=== PATIENT | female | born 1950 | race Caucasian/White ===

== ENCOUNTER 2019-05-29 12:49 | Emergency (ER) | payer MEDICARE ==
[~2019-05-29] VITALS: Ht 162.6 cm; Wt 57.2 kg
--- NOTE | 2019-05-29 12:53 | NUR ---
ED Nurse Note: Pt brought in by ambulance c/o dizziness and vomiting x 3 hours. Pt became so dizzy that she sat herself on the floor. Pt denies fall/loss of consciousness/head injury. A+Ox4, speaking in full sentences. Respirations even and unlabored on room air. Pt is not actively vomiting at this time. Pt placed on monitor. Left FA 20 g inserted by paramedics flushed and patent.
[2019-05-29] MEDS ORDERED: Meclizine 25mg tab ORAL ONE (13:00)
--- NOTE | 2019-05-29 13:01 | Emergency Room Report ---
History of Present Illness General Chief Complaint: Dizziness Source: Patient (Christopher Bonilla MD) Present Illness HPI She is a 68-year-old female brought in by EMS after increased dizziness. Patient a prior history of high cholesterol as well as vertigo episodes in the past. She reports of increased ringing to ears. had acute onset of vertigo sensation. Reports having recent episode which worse with head movement. Denies any weakness to her extremities. Had recently traveled from [facility] but denies any diarrhea or vomit or vomiting since then and had previously been well. (Christopher Bonilla MD) Allergies: Coded Allergies: CODEINE (Verified Allergy, Intermediate, 05/29/19) Review of Systems All Other Systems: negative except mentioned in HPI (Christopher Bonilla MD) Physical Exam Vital Signs Date Time Temp Pulse Resp B/P (MAP) Pulse Ox O2 Delivery O2 Flow Rate FiO2 05/29/19 12:47 98.1 58 16 147/73 (97) 97 Sp02 EP Interpretation: reviewed, normal General Appearance: normal inspection, well appearing, no apparent distress, alert, GCS 15 Head: atraumatic ENT: normal ENT inspection, hearing grossly normal, normal voice Neck: normal inspection, full range of motion, supple, no bony tend Respiratory: normal inspection, lungs clear, normal breath sounds, no respiratory distress, no retraction, no wheezing Cardiovascular #1: regular rate, rhythm, no edema Gastrointestinal: normal inspection, normal bowel sounds, non tender, soft, no guarding, no hernia Genitourinary: no CVA tenderness Musculoskeletal: normal inspection, back normal, normal range of motion Neurologic: alert, oriented x3, responsive, speech normal, normal inspection, other - Nystagmus with leftward gaze. Psychiatric: normal inspection, judgement/insight normal, mood/affect normal (Christopher Bonilla MD) Medical Decision Making Diagnostic Impression: Primary Impression: Dizziness Additional Impression: Possible TIA ER Course Patient presented for increased dizziness and weakness. Differential diagnosis include was not limited to transient ischemic attack, peripheral vertigo, vertebrobasilar insufficiency, labyrinthitis, among others. Because of complexity of patient's case laboratory tests and imaging studies were ordered. Patient's laboratory testing was unremarkable. No hyponatremia or anemia. CT imaging read by radiology showed no evidence of acute intracranial hemorrhage or CVA. Patient was endorsed to Dr. Hale pending further imaging studies. Labs Test 05/29/19 13:20 White Blood Count 7.1 K/UL (4.8-10.8) Red Blood Count 3.91 M/UL (4.20-5.40) Hemoglobin 12.2 G/DL (12.0-16.0) Hematocrit 35.2 % (37.0-47.0) Mean Corpuscular Volume 90 FL (80-99) Mean Corpuscular Hemoglobin 31.2 PG (27.0-31.0) Mean Corpuscular Hemoglobin Concent 34.7 G/DL (32.0-36.0) Red Cell Distribution Width 11.4 % (11.6-14.8) Platelet Count 222 K/UL (150-450) Mean Platelet Volume 5.4 FL (6.5-10.1) Neutrophils (%) (Auto) 45.9 % (45.0-75.0) Lymphocytes (%) (Auto) 41.3 % (20.0-45.0) Monocytes (%) (Auto) 6.2 % (1.0-10.0) Eosinophils (%) (Auto) 5.8 % (0.0-3.0) Basophils (%) (Auto) 0.9 % (0.0-2.0) Sodium Level 140 MMOL/L (136-145) Potassium Level 4.3 MMOL/L (3.5-5.1) Chloride Level 103 MMOL/L (98-107) Carbon Dioxide Level 26 MMOL/L (21-32) Anion Gap 11 mmol/L (5-15) Blood Urea Nitrogen 11 mg/dL (7-18) Creatinine 0.9 MG/DL (0.55-1.30) Estimat Glomerular Filtration Rate > 60 mL/min (>60) Glucose Level 139 MG/DL (74-106) Calcium Level 8.3 MG/DL (8.5-10.1) Total Bilirubin 0.3 MG/DL (0.2-1.0) Aspartate Amino Transf (AST/SGOT) 22 U/L (15-37) Alanine Aminotransferase (ALT/SGPT) 24 U/L (12-78) Alkaline Phosphatase 73 U/L (46-116) Total Protein 7.0 G/DL (6.4-8.2) Albumin 3.5 G/DL (3.4-5.0) Globulin 3.5 g/dL Albumin/Globulin Ratio 1.0 (1.0-2.7) (Christopher Bonilla MD) ER Course This patient was turned over to me by Dr. Bonilla. He felt this patient had a TIA and should be admitted for further evaluation and treatment. I was able to obtain an MRI brain and this was negative. However, the patient declined admission and left AGAINST MEDICAL ADVICE. I did educate the patient that a TIA can be a warning of an unstable plaque and could be a prodrome to a CVA. The patient indicated understanding. She declined admission and left AGAINST MEDICAL ADVICE. Laboratory Tests Test 05/29/19 13:20 White Blood Count 7.1 K/UL (4.8-10.8) Red Blood Count 3.91 M/UL (4.20-5.40) L Hemoglobin 12.2 G/DL (12.0-16.0) Hematocrit 35.2 % (37.0-47.0) L Mean Corpuscular Volume 90 FL (80-99) Mean Corpuscular Hemoglobin 31.2 PG (27.0-31.0) H Mean Corpuscular Hemoglobin Concent 34.7 G/DL (32.0-36.0) Red Cell Distribution Width 11.4 % (11.6-14.8) L Platelet Count 222 K/UL (150-450) Mean Platelet Volume 5.4 FL (6.5-10.1) L Neutrophils (%) (Auto) 45.9 % (45.0-75.0) Lymphocytes (%) (Auto) 41.3 % (20.0-45.0) Monocytes (%) (Auto) 6.2 % (1.0-10.0) Eosinophils (%) (Auto) 5.8 % (0.0-3.0) H Basophils (%) (Auto) 0.9 % (0.0-2.0) Sodium Level 140 MMOL/L (136-145) Potassium Level 4.3 MMOL/L (3.5-5.1) Chloride Level 103 MMOL/L (98-107) Carbon Dioxide Level 26 MMOL/L (21-32) Anion Gap 11 mmol/L (5-15) Blood Urea Nitrogen 11 mg/dL (7-18) Creatinine 0.9 MG/DL (0.55-1.30) Estimate Glomerular Filtration Rate > 60 mL/min (>60) Glucose Level 139 MG/DL (74-106) H Calcium Level 8.3 MG/DL (8.5-10.1) L Total Bilirubin 0.3 MG/DL (0.2-1.0) Aspartate Amino Transferase (AST) 22 U/L (15-37) Alanine Aminotransferase (ALT) 24 U/L (12-78) Alkaline Phosphatase 73 U/L (46-116) Total Protein 7.0 G/DL (6.4-8.2) Albumin 3.5 G/DL (3.4-5.0) Globulin 3.5 g/dL Albumin/Globulin Ratio 1.0 (1.0-2.7) ([facility]) EKG Diagnostic Results Rate: normal Rhythm: NSR ST Segments: no acute changes (Christopher Bonilla MD) CT/MRI/US Diagnostic Results CT/MRI/US Diagnostic Results : Imaging Test Ordered: MRI Brain Impression No acute findings. See official report in the electronic medical record ([facility]) Last Vital Signs Date Time Temp Pulse Resp B/P (MAP) Pulse Ox O2 Delivery O2 Flow Rate FiO2 05/29/19 12:47 98.1 58 16 147/73 (97) 97 Status: improved (Christopher Bonilla MD) Disposition: AGAINST MEDICAL ADVICE Condition: Stable Scripts Meclizine Hcl* (MECLIZINE*) 25 Mg Tablet 25 MG ORAL THREE TIMES A DAY, #20 TAB Prov: Aliya Foss [facility] 05/29/19 Christopher Bonilla MD May 29, 2019 13:01 [facility] May 29, 2019 18:48
[2019-05-29 13:19] VITALS: BP 147/73
--- NOTE | 2019-05-29 13:20 | NUR ---
iv infusing meds given as orderd per patient she feels better since she got here no vimiting noted
[2019-05-29 13:28] LABS: BASOPHILS % (AUTO) 0.9 % (0.0-2.0); EOSINOPHILS % (AUTO) 5.8 % (0.0-3.0); HEMATOCRIT 35.2 % (37.0-47.0); HEMOGLOBIN 12.2 G/DL (12.0-16.0); LYMPHOCYTES % (AUTO) 41.3 % (20.0-45.0); MEAN CORPUSCULAR VOLUME 90 FL (80-99); MONOCYTES % (AUTO) 6.2 % (1.0-10.0); NEUTROPHILS % (AUTO) 45.9 % (45.0-75.0); PLATELET COUNT 222 K/UL (150-450); RED BLOOD COUNT 3.91 M/UL (4.20-5.40); RED CELL DISTRIBUTION WIDTH 11.4 % (11.6-14.8); WHITE BLOOD COUNT 7.1 K/UL (4.8-10.8)
[2019-05-29 14:00] LABS: ANION GAP 11 mmol/L (5-15); BLOOD UREA NITROGEN 11 mg/dL (7-18); CALCIUM 8.3 MG/DL (8.5-10.1); CARBON DIOXIDE 26 MMOL/L (21-32); CHLORIDE 103 MMOL/L (98-107); CREATININE 0.9 MG/DL (0.55-1.30); POTASSIUM 4.3 MMOL/L (3.5-5.1); SODIUM 140 MMOL/L (136-145)
[2019-05-29 14:05] LABS: ALANINE AMINOTRANSFERASE 24 U/L (12-78); ALBUMIN 3.5 G/DL (3.4-5.0); ALKALINE PHOSPHATASE 73 U/L (46-116); ASPARTATE AMINO TRANSFERASE 22 U/L (15-37); BILIRUBIN,TOTAL 0.3 MG/DL (0.2-1.0)
[2019-05-29] MEDS ORDERED: CRESTOR20 MG ORAL (14:15)
[2019-05-29] MEDS ORDERED: ALPRAZOLAM0.5 MG PO (14:15)
[2019-05-29] MEDS ORDERED: CLARITIN5 MG ORAL (14:15)
[2019-05-29] MEDS ORDERED: ASPIRIN81 MG ORAL (14:15)
--- NOTE | 2019-05-29 15:27 | Diagnostic Imaging Report ---
Indication: Increasing dizziness 68-year-old female Technique: Contiguous 5 mm thick transaxial imaging of the head obtained in a Siemens Sensation [address] scanner. Soft tissue and bone windows generated. Automatic Exposure Control was utilized. Total Dose length Product (DLP): 1426.[address] Dose Index Volume (CTDIvol): 62.7 mGy Comparison: none Findings: The size and configuration of the cortical sulci, basal cisterns, and ventricles are within normal limits for age. There is no mass effect, midline shift, or edema identified. There is no evidence of acute hemorrhage or abnormal intra-axial or extra-axial fluid collections. The bones and soft tissues are unremarkable. Impression: No mass effect, edema or acute bleed. The CT scanner at [facility] is accredited by the [employer] and the scans are performed using dose optimization techniques as appropriate to a performed exam including Automatic Exposure control.
[2019-05-29 16:00] VITALS: BP 142/75
--- NOTE | 2019-05-29 17:26 | NUR ---
ED Nurse Note: Pt in MRI
--- NOTE | 2019-05-29 17:43 | NUR ---
ED Nurse Note: Pt back from MRI
[2019-05-29 18:32] VITALS: BP 139/78
--- NOTE | 2019-05-29 18:33 | Diagnostic Imaging Report ---
Indication: Syncope. Nausea vomiting Technique: The head was imaged in a 1.5 Mckayla magnet. Sequences obtained include sagittal and axial T1 FLAIR, axial T2 fast spin echo with fat saturation, axial T2* GRE, axial T2 FLAIR, diffusion and ADC map. Comparison: None Findings: The size, contour, and configuration of the sulci, ventricles, and basal cisterns appear normal. Benitez-white differentiation is normal. There is no restricted diffusion. There is no mass effect, midline shift, edema, or hemorrhage. There are no abnormal extra-axial or intra-axial fluid collections. The corpus callosum is unremarkable. The brainstem and cerebellum are unremarkable. The sella is unremarkable. Bone marrow signal within the visualized osseous structures appears age appropriate and unremarkable otherwise. Impression: Negative MRI brain without contrast.
--- NOTE | 2019-05-29 18:54 | NUR ---
ED Nurse Note: ED MD @ bedside
[2019-05-29] MEDS ORDERED: MECLIZINE HCL25 MG ORAL (18:56)
--- NOTE | 2019-05-29 19:01 | NUR ---
AMA: SEE AMA FORM. Pt did not want to be admitted upstairs to telemetry because she "needs to get home." ED MD spoke with pt about risks and benefits, but pt still wished to leave AMA. Pt signed form and is aware of the need to come back to the ED if she feels any symptoms of dizziness or lightheadedness again. Sister @ bedside with patient. Respirations even and unlabored on room air. Vitals stable as documented. Prescription given to patient. Pt verbalizes understanding. ID and IV removed. Pt taking all belongings and walking with steady gait.
--- NOTE | 2019-05-29 19:01 | NUR ---
ED Nurse Note: Report given to [place] [place]. Plan of care endorsed.
[2019-05-29 19:07] VITALS: BP 142/80
== END 2019-05-29 19:08 | disposition left against medical advice (07) ==
LOC: EDBD 12:49 → EMR 13:35
DX: R42 Dizziness and giddiness (principal); R53.1 Weakness; Z88.6 Allergy status to analgesic agent; E78.00 Pure hypercholesterolemia, unspecified
CPT/HCPCS: 36415; 70450; 70551; 80053; 85025; 96374; 99284; J2405; J7040